=== PATIENT | female | born 2000 | race Two or more races ===

== ENCOUNTER 2023-10-04 13:32 | Emergency (ER) | payer OTHER ==
[2023-10-04] MEDS ORDERED: AMOXICILLIN 250 MG CAPSULE PO STA (16:24)
[2023-10-04] MEDS ORDERED: CETIRIZINE 10 MG TABLET PO STA (16:24)
[2023-10-04] MEDS ORDERED: dexAMETHasone 4 MG TABLET PO STA (16:24)
--- NOTE | 2023-10-04 17:04 | ED Physician Documentation ---
PD HPI URI - Stated complaint Stated Complaint: PUENTES - Chief complaint Chief Complaint: Heent - History obtained from History obtained from: Patient - History of Present Illness Timing - onset: How many days ago (has had some nasal congestion, scratchy throat and frontal pressure feeling for few days. Awoke with more headache left frontal and periorbital area today. Was not sure of medications to take as is 15 wks . NO abd cramping nor vaginal bleeding.) Timing details: Gradual onset, Still present, Waxing and waning Associated symptoms: Nasal congestion, Rhinorrhea, Sinus pain (left frontal and periorbital area.), Sore throat. No: Fever Similar symptoms before: Has not had sx before Recently seen: Clinic (seen [facility] recently with normal so far at 15 wks EGA. Had earlier US with normal at the time. Scheduled for formal US in few eeeks.) Review of Systems Constitutional: reports: Myalgias. denies: Fever, Chills Nose: reports: Rhinorrhea / runny nose, Congestion, Sinus pressure / pain Throat: reports: Sore throat Respiratory: denies: Cough GI: reports: Nausea. denies: Vomiting, Diarrhea : denies: Vaginal bleeding Skin: denies: Rash PD PAST MEDICAL HISTORY - Past Medical History Past Medical History: No Cardiovascular: None Respiratory: None Neuro: None Endocrine/Autoimmune: None GI: None ADMINISTRATIVE OFFICER: None : None HEENT: None Psych: None Musculoskeletal: None Derm: None - Past Surgical History Past Surgical History: No - Present Medications Home Medications: Ambulatory Orders Medication Instructions Recorded Confirmed Amoxicillin 500 mg PO TID #18 cap 10/04/23 Cetirizine [ZyrTEC] 10 mg PO BID #15 tablet 10/04/23 Fluticasone [Flonase] 1 sprays SONJA BID #16 gm 10/04/23 Pnv 119/Iron Fum/Folic Acid 1 tab PO DAILY 10/04/23 [ 19 Tablet] - Allergies Allergies/Adverse Reactions: Allergies Allergy/AdvReac Type Severity Reaction Status Date / Time No Known Drug Allergies Allergy Verified 10/04/23 13:44 - Social History Does the pt smoke?: No Smoking Status: Never smoker Does the pt drink ETOH?: No Does the pt have substance abuse?: No - Immunizations Immunizations are current?: Yes - POLST Patient has POLST: No PD ED PE NORMAL - Vitals Vital signs reviewed: Yes - General General: Alert and oriented X 3, No acute distress, Well developed/nourished - HEENT HEENT: PERRL, EOMI, Ears normal, Pharynx benign, Other (not light sensitive) - Neck Neck: Supple, no meningeal sign, No adenopathy - Abdomen Abdomen: Non tender, Other (gravid with fundus midway to umbilicus. Bedside US showing normal IUP with movement and good FHR. ) - Derm Derm: Normal color, Warm and dry - Neuro Neuro: Alert and oriented X 3, No motor deficit, Normal speech Results - Vitals Vitals: Oxygen O2 Source Room air PD Medical Decision Making - ED course Complexity details: considered differential (sinus type PUENTES with recent URI symptoms. No history of migraines. No meningeal symptoms. No head injury. Shared discussion that CT was not felt indicated/needed unless worse/not improving. Treat as sinus infection. ), d/w patient Departure - Departure Disposition: 01 Home, Self Care Clinical Impression: Frontal headache, Sinusitis, acute Condition: Stable Record reviewed to determine appropriate education?: Yes Instructions: ED Sinusitis Abx Tx Follow-Up: ROBSON JACOBSON MD [Primary Care Provider] - Prescriptions: Amoxicillin 500 mg PO TID #18 cap Fluticasone [Flonase] 1 sprays SONJA BID #16 gm Cetirizine [ZyrTEC] 10 mg PO BID #15 tablet Comments: This does sound likely to be a sinus infection. It is potentially all viral and congestion but given the duration of your symptoms, I be considering a bacterial infection instead or in addition. I would suggest using the fluticasone nasal spray both nostrils twice daily for the next week to 10 days. Use cetirizine antihistamine as well to help reduce some of the congestion. Amoxicillin 3 times daily for the next week for potential bacterial infection. Use Tylenol every 4-6 hours if needed for pains or fevers. At this point in you can still use ibuprofen/anti-inflammatories (up to 20 weeks gestational age). We did do a bedside limited ultrasound here which showed normal heartbeat and movement and basic structure. The baby looks good at this point. I sent your prescriptions to [facility]. I would anticipate improvement over the next several days Forms: PCP List Discharge Date/Time: 10/04/23 17:15
[2023-10-04 17:19] VITALS: BP 136/70; O2SAT 98
== END 2023-10-04 17:15 | disposition home or self-care (01) ==
LOC: ED 13:32
DX: O99.511 Diseases of the respiratory system complicating pregnancy, first trimester (principal); J01.90 Acute sinusitis, unspecified; Z3A.15 15 weeks gestation of pregnancy
CPT/HCPCS: 99283; A9270; J8540